=== PATIENT | male | born 1940 | race Caucasian/White ===

== ENCOUNTER 2019-03-10 18:13 | Emergency (ER) | payer OTHER, BC ==
[~2019-03-10] VITALS: Ht 177.8 cm; Wt 103.4 kg
[2019-03-10 18:17] VITALS: Ht 177.8 cm; Wt 103.4 kg
[2019-03-10 21:45] VITALS: BP 149/58
== END 2019-03-10 21:45 | disposition home or self-care (01) ==
LOC: ED 18:13
DX: S61.215A Laceration without foreign body of left ring finger without damage to nail, initial encounter (principal); I10 Essential (primary) hypertension; Z98.890 Other specified postprocedural states; W26.8XXA Contact with other sharp object(s), not elsewhere classified, initial encounter; Y93.H2 Activity, gardening and landscaping; Y92.89 Other specified places as the place of occurrence of the external cause; Y99.8 Other external cause status
CPT/HCPCS: 90715; J2001